=== PATIENT | male | born 1955 | race Native Hawaiian/Other Pacific Islander ===

== ENCOUNTER → 2017-03-28 | Outpatient (CLI) | payer OTHER | END | disposition home or self-care (01) | LOC: RADMN 12:49 | PROVIDERS: ATTEND Internal Medicine Geriatric Medicine | DX: I67.2 Cerebral atherosclerosis (principal); G31.89 Other specified degenerative diseases of nervous system; R90.82 White matter disease, unspecified | CPT/HCPCS: 70450 ==

== ENCOUNTER → 2017-07-04 | Outpatient (CLI) | payer OTHER ==
[~2017-07-04] MED LIST: REGADENOSON 0.4 MG/5 ML PF SYRINGE IVP ONE; SESTAMIBI TC99M/UD ISOTOPE 1 EA INJ INJ ONE
[2017-07-04 08:30] VITALS: BP 137/90
[2017-07-04 09:19] VITALS: BP 128/77
== END | disposition home or self-care (01) ==
LOC: CARDMN 07:53
PROVIDERS: ATTEND Internal Medicine Cardiovascular Disease
DX: R06.02 Shortness of breath (principal); R94.31 Abnormal electrocardiogram [ECG] [EKG]
CPT/HCPCS: 78452; 93017; 93306; A9500; J2785

== ENCOUNTER → 2022-05-20 | Outpatient (CLI) | payer MEDICARE | END | disposition home or self-care (01) | LOC: RADPV 10:53 | PROVIDERS: ATTEND Internal Medicine Geriatric Medicine | DX: M47.814 Spondylosis without myelopathy or radiculopathy, thoracic region (principal); R05.3 Chronic cough; I77.1 Stricture of artery | CPT/HCPCS: 71046 ==